=== PATIENT | female | born 1950 | race Caucasian/White ===

== ENCOUNTER → 2019-01-06 | Outpatient (CLI) | payer OTHER ==
[2019-01-06 19:28] LABS: BASOPHILS ABSOLUTE AUTO 0.02 K/mm3 (0.00-0.23); BASOPHILS PERCENT AUTO 0 % (0-2); EOSINOPHILS ABSOLUTE AUTO 0.14 K/mm3 (0.00-0.68); EOSINOPHILS PERCENT AUTO 2 % (0-6); Hematocrit 39.2 % (33.0-51.0); Hemoglobin 12.7 g/dL (11.5-16.0); IMMATURE GRAN ABSOLUTE AUTO 0.01 K/mm3 (0.00-0.10); IMMATURE GRAN PERCENT AUTO 0 % (0-1); LYMPHOCYTES PERCENT AUTO 28 % (21-46); MONOCYTES ABSOLUTE AUTO 0.48 K/mm3 (0.16-1.47); MONOCYTES PERCENT AUTO 8 % (4-13); Mean Corpuscular HGB 28.5 pg (26.0-34.0); Mean Corpuscular HGB Conc 32.4 g/dL (31.5-36.5); Mean Corpuscular Volume 88 fL (80-100); NEUTROPHILS ABSOLUTE AUTO 3.53 K/mm3 (1.96-9.15); NEUTROPHILS PERCENT AUTO 61 % (41-73); Platelet Count 342 K/mm3 (150-400); RDW Coefficient Variation 13.1 % (11.7-14.2); RDW Standard Deviation 42.5 fL (35.1-46.3); Red Blood Cell Count 4.45 M/mm3 (3.80-5.20); White Blood Cell Count 5.78 K/mm3 (4.00-11.30)
[2019-01-06 20:03] LABS: Albumin, Blood 3.8 g/dL (3.4-5.0); Alk Phos 108 U/L (50-136); Anion Gap 7 mmol/L (6-16); Aspartate Aminotrans (AST/SGOT 18 U/L (12-37); Bilirubin, Total 0.2 mg/dL (0.1-1.0); Blood Urea Nitrogen 13 mg/dL (8-24); Bun/Creatinine Ratio 20.9 (12.0-20.0); CHOL/HDL RATIO 3.5; CO2, Blood 26 mmol/L (21-32); Calcium, Blood 9.4 mg/dL (8.5-10.1); Chloride, Blood 108 mmol/L (98-108); Cholesterol 209 mg/dL (50-200); Creatinine, Blood 0.62 mg/dL (0.40-1.00); Globulin, Blood 3.9 g/dL (2.2-4.0); Glomerular Filtration Rate >60 (60-); Glucose, Blood 111 mg/dL (70-99); HDL Cholesterol 59 mg/dL (>39); LDL/HDL RATIO 2.2; Low Density Lipoprotein Chol 133 mg/dL (0-110); Potassium, Blood 3.5 mmol/L (3.5-5.5); Sodium, Blood 141 mmol/L (136-145); Total Protein, Blood 7.7 g/dL (6.4-8.2); Triglycerides 87 mg/dL (30-160); Very Low Density Lipoprot Chol 17 mg/dL (6-32)
[2019-01-06 20:09] LABS: Alanine Aminotransfer (ALT/SGP 23 U/L (12-78)
== END | disposition home or self-care (01) ==
LOC: LAB SHORT 18:21 → LAB 18:21
DX: I10 Essential (primary) hypertension (principal)
CPT/HCPCS: 80053; 80061; 85025

== ENCOUNTER 2020-04-21 20:39 | Inpatient (IN) | payer OTHER, MEDICARE ==
[~2020-04-21] VITALS: Ht 162.6 cm; Wt 61.1 kg
[2020-04-21 21:13] LABS: Hematocrit 44.1 % (33.0-51.0); Hemoglobin 14.8 g/dL (11.5-16.0); Mean Corpuscular HGB 28.8 pg (26.0-34.0); Mean Corpuscular HGB Conc 33.6 g/dL (31.5-36.5); Mean Corpuscular Volume 86 fL (80-100); Mean Platelet Volume 9.4 fL (9.1-12.4); Platelet Count 251 K/mm3 (150-400); RDW Coefficient Variation 12.8 % (11.7-14.2); RDW Standard Deviation 40.6 fL (35.1-46.3); Red Blood Cell Count 5.13 M/mm3 (3.80-5.20); White Blood Cell Count 2.95 K/mm3 (4.00-11.30)
[2020-04-21 21:36] LABS: Albumin, Blood 3.5 g/dL (3.4-5.0); Albumin/Globulin Ratio 0.7 (0.8-1.8); Bilirubin, Total 0.7 mg/dL (0.1-1.0); Bun/Creatinine Ratio 22.2 (12.0-20.0); Calcium, Blood 9.8 mg/dL (8.5-10.1); Creatinine, Blood 1.17 mg/dL (0.40-1.00); Globulin, Blood 5.1 g/dL (2.2-4.0); Potassium, Blood 3.8 mmol/L (3.5-5.5); Total Protein, Blood 8.6 g/dL (6.4-8.2)
[2020-04-21 21:42] LABS: BAND PERCENT MAN 21 % (0-8); BASOPHILS PERCENT MAN 0 % (0-2); EOSINOPHILS PERCENT MAN 0 % (0-6); LYMPHOCYTES ABSOLUTE MAN 0.17 K/mm3 (0.84-5.20); LYMPHOCYTES PERCENT MAN 6 % (21-46); METAMYELOCYTE ABSOLUTE MAN 0.02 K/mm3 (0.00-0.00); METAMYELOCYTE PERCENT MAN 1 % (0-0); MONOCYTES ABSOLUTE MAN 0.05 K/mm3 (0.16-1.47); MONOCYTES PERCENT MAN 2 % (4-13); NEUTROPHILS ABSOLUTE MAN 2.68 K/mm3 (1.96-9.15); SEG NEUTROPHILS PERCENT MAN 70 % (41-73); TOTAL CELLS COUNTED 100
[2020-04-21] MEDS ORDERED: ZESTRIL40 M1 PO (23:25)
[2020-04-21] MEDS ORDERED: AMLODIPINE BESY10 MG PO (23:25)
[2020-04-21] MEDS ORDERED: GEMFIBROZIL600 MG PO (23:25)
[2020-04-22 00:54] LABS: Magnesium, Blood 2.2 mg/dL (1.6-2.4)
[2020-04-22 01:30] LABS: Thyroid Stimulating Hormone 2.97 uIU/mL (0.360-4.800); Troponin I 0.096 ng/mL (0.000-0.040)
[2020-04-22 03:29] LABS: Source, Urine Clean Catch
[2020-04-22 03:31] LABS: Appearance, Urine Hazy (Clear); Bilirubin, Urine Neg (Neg); Blood, Urine 5+ (Neg); Color, Urine Yellow (P-Yellow); Glucose Qualitative, Urine Neg (Neg); Ketones, Urine 1+ (Neg); Leukocyte Esterase, Urine 2+ (Neg); Nitrite, Urine Neg (Neg); Protein, Urine 3+ (Neg); Specific Gravity, Urine 1.015 (1.003-1.022); Urobilinogen, Urine NORM (Normal)
[2020-04-22 03:37] LABS: Bacteria Many /hpf; Red Blood Cells, Urine 0-2 /hpf (0-2); Squamous Epithelial Cells Rare /hpf (Few); White Blood Cells, Urine TNTC /hpf (0-5)
--- NOTE | 2020-04-22 13:30 | NUR ---
ASSUMED CARE: PT ARRIVED TO ICU FROM ED VIA GURNEY. LEVOPHED AT 3MCG AND TURNED OFF DUE TO MAP 75. LR RUNNING AT 125/HR. PT SAID THAT IV HURTS BUT CLARIFIED THAT IT WAS NOT PAINFUL TO RUN BUT FELT HEAVY. LEVOPHED DISCONNECTED AT THIS TIME. ALERT AND ORIENTED, COOPERATIVE. ANSWERING QUESTIONS APPROPRIATELY. NSR ON TELE. SCDS IN PLACE. NO ACUTE NEEDS OR CONCERNS AT THIS TIME.
--- NOTE | 2020-04-22 15:07 | NUR ---
BATON TEACHER AT BEDSIDE AT THIS TIME.
--- NOTE | 2020-04-22 15:19 | NUR ---
Echocardiogram completed.
--- NOTE | 2020-04-22 18:47 | NUR ---
SHIFT SUMMARY: PT HAS BEEN OFF OF LEVOPHED SINCE ARRIVAL TO ICU. VSS. BLOOD PRESSURES SOFT BUT MAP GREATER THAN 67. PLACED ON 2L O2 TO KEEP SATS GREATER THAN 92%. WAS AT BEDSIDE AND GIVEN AN UPDATE. PT DENIES NEEDS OR CONCNERNS. SINUS ELVIRA WITH HR AT 57 AT THIS TIME.
--- NOTE | 2020-04-22 19:40 | NUR ---
PT UP TO BSC WITH SBA - REPORTS ONLY DISCOMFORT IS SHE FEELS "TIRED AND WEAK." PT DENIES ANY HEADACHE, CHEST PAIN, SOB, NAUSEA, NUMBNESS/TINGLING OF PAIN. PAS OFF FOR BSC USE, THEN PLACED BACK ON WHEN PT BACK TO BED. LR INFUSING TO R AC IV SITE WITHOUT COMPLICATIONS. PT DENIED ANY BURNING WITH URINATION. CALL LIGHT IN REACH.
--- NOTE | 2020-04-23 00:10 | NUR ---
PT REQUESTING TO HAVE HER OXYGEN TURNED DOWN - SHE REPORTS SHE FEELS LIKE SHE IS GETTING TOO MUCH AIR - O2 TURNED DOWN FROM 3L TO 1L - SATS MAINTAINING IN LOW 90'S. CALL LIGHT WITHIN REACH, BED IN LOW POSITION, FLUIDS AT BEDSIDE.
--- NOTE | 2020-04-23 02:25 | NUR ---
PT REPORTS HAVING RIGHT SHOULDER PAIN. SHE ALSO REPORTS SHE HAS ARTHRITIS, "ALL OVER" AND USUALLY TAKES ALEVE AT HOME. DENIES WANTING TYLENOL. PT REPORTED THAT AT APPX 0200 SHE AWOKE TO RIGHT SHOULDER PAIN 7/10, BUT SHE STARTED MOVING AROUND IN BED, AND THE PAIN IMPROVED. PT HAD A 4 BEAT RUN OF SVT AT 0203. PT DENIES ANY CHEST PAIN, SOB, NAUSEA, OR NUMBNESS AND TINGLING. PROVIDED PT WITH KPAD FOR COMFORT TO RIGHT SHOULDER. SHE REPORTS HER PAIN IN HER RIGHT SHOULDER CURRENTLY IS 3/10. ICE WATER PROVIDED PER REQUEST. BED IN LOW POSITION. SATS WNL ON 1L O2 NC. CALL LIGHT WITHIN REACH.
[2020-04-23 03:53] LABS: BASOPHILS ABSOLUTE AUTO 0.02 K/mm3 (0.00-0.23); BASOPHILS PERCENT AUTO 0 % (0-2); EOSINOPHILS ABSOLUTE AUTO 0.03 K/mm3 (0.00-0.68); EOSINOPHILS PERCENT AUTO 0 % (0-6); Hematocrit 28.9 % (33.0-51.0); Hemoglobin 9.9 g/dL (11.5-16.0); IMMATURE GRAN ABSOLUTE AUTO 0.06 K/mm3 (0.00-0.10); IMMATURE GRAN PERCENT AUTO 1 % (0-1); LYMPHOCYTES ABSOLUTE AUTO 1.06 K/mm3 (0.84-5.20); LYMPHOCYTES PERCENT AUTO 10 % (21-46); MONOCYTES ABSOLUTE AUTO 0.76 K/mm3 (0.16-1.47); MONOCYTES PERCENT AUTO 7 % (4-13); Mean Corpuscular HGB 29.1 pg (26.0-34.0); Mean Corpuscular HGB Conc 34.3 g/dL (31.5-36.5); Mean Corpuscular Volume 85 fL (80-100); Mean Platelet Volume 10.5 fL (9.1-12.4); NEUTROPHILS ABSOLUTE AUTO 9.23 K/mm3 (1.96-9.15); NEUTROPHILS PERCENT AUTO 83 % (41-73); Platelet Count 233 K/mm3 (150-400); RDW Coefficient Variation 13.2 % (11.7-14.2); RDW Standard Deviation 40.9 fL (35.1-46.3); White Blood Cell Count 11.16 K/mm3 (4.00-11.30)
[2020-04-23 04:13] LABS: Albumin, Blood 2.2 g/dL (3.4-5.0); Anion Gap 8 mmol/L (6-16); Blood Urea Nitrogen 18 mg/dL (8-24); Bun/Creatinine Ratio 24.7 (12.0-20.0); CO2, Blood 26 mmol/L (21-32); Calcium, Blood 8.3 mg/dL (8.5-10.1); Chloride, Blood 108 mmol/L (98-108); Creatinine, Blood 0.73 mg/dL (0.40-1.00); Glomerular Filtration Rate >60 (60-); Glucose, Blood 94 mg/dL (70-99); Phosphorus, Blood 1.6 mg/dL (2.5-4.9); Sodium, Blood 142 mmol/L (136-145)
--- NOTE | 2020-04-23 04:20 | NUR ---
SPOKE TO DR. RUSSO - UPDATED ON POTASSIUM, PHOSPHORUS, AND H&H LEVEL THIS AM - ALSO REVIEWED PT ON LR AT 150 HOUR. NEW ORDERS OBTAINED.
--- NOTE | 2020-04-23 05:12 | NUR ---
SHIFT SUMMARY - NO ACUTE CHANGES TONIGHT. PT REPORTS THE KPAD IS HELPING WITH HER RIGHT SHOULDER PAIN. PT SLEPT FOR APPX 5 HOURS. PT SATS WNL WITH 1L OXYGEN VIA NC. PAS TAKEN OFF THIS AM, AFTER LAST BSC USE, PER PT REQUEST. PT DENIES ANY BURNING WITH URINATION, URINE CLEAR YELLOW, LESS ODOR WITH URINE THIS AM. FLUIDS AT BEDSIDE. CALL LIGHT WITHIN REACH. BED IN LOW POSITION.
[2020-04-23 06:45] LABS: Percent Saturation 12.8 % (15.0-50.0)
--- NOTE | 2020-04-23 08:24 | NUR ---
ASSUME CARE: REPORT RECEIVED FROM KI JOY RN. PT IS ALERT AND ORIENTED X4 PLEASANT AND COOPERATIVE, VITALS HRR SR/SB 55-60'S, BP SYSTOLIC 120'S, SATS ABOVE 92% ON RA, AFEBRILE. PT DENIES ANY CHEST PAIN/PRESSURE. RIGHT SHOULDER PAIN RELIEVED BY WARM COMPRESS HAS MILD HEADACHE BUT REFUSED TYLENOL AT THIS TIME. PT SBA TO TOILET FOR TRANSFERS TOELRATED WELL. PT REMAINS ON CLEAR LIQUID DIET, LR RUNNING AT 150MLS/HR AND ZOSYN AT 12.5MLS/HR. NO OTHER ISSUES REPORTED AT THIS TIME, PT IN BED EATING BREAKFAST ABLE TO MAKE NEEDS KNOWN, CALL LIGHTS IN REACH WILL MONITOR
--- NOTE | 2020-04-23 12:48 | NUR ---
STATUS CHANGE TO MEDICAL WITH NO TELE. PT TRANSFERRED TO ROOM 233 VIA WHEELCAHIR ACCOMPANIED BY PCT, ALL BELONGINGS SENT. REPORT GIVEN TO JOSE SUE
--- NOTE | 2020-04-23 18:43 | NUR ---
PT HAS BEEN STABLE SINCE TRANSFER FROM ICU. PT BP STABLE. PT UP INDEP IN ROOM. PT VOIDING WELL WITH NO URINARY SYMPTOMS. CONT IV FLUIDS ORDERED. CONT ABX. PT DENIES PAIN. POOR APPETITE. PLAN FOR POSSIBLE DC HOME TOMORROW.
[2020-04-24 05:59] LABS: BASOPHILS ABSOLUTE AUTO 0.02 K/mm3 (0.00-0.23); BASOPHILS PERCENT AUTO 0 % (0-2); EOSINOPHILS ABSOLUTE AUTO 0.01 K/mm3 (0.00-0.68); EOSINOPHILS PERCENT AUTO 0 % (0-6); Hematocrit 30.8 % (33.0-51.0); Hemoglobin 10.7 g/dL (11.5-16.0); IMMATURE GRAN ABSOLUTE AUTO 0.07 K/mm3 (0.00-0.10); IMMATURE GRAN PERCENT AUTO 1 % (0-1); LYMPHOCYTES ABSOLUTE AUTO 0.56 K/mm3 (0.84-5.20); LYMPHOCYTES PERCENT AUTO 6 % (21-46); MONOCYTES ABSOLUTE AUTO 0.45 K/mm3 (0.16-1.47); MONOCYTES PERCENT AUTO 5 % (4-13); Mean Corpuscular HGB Conc 34.7 g/dL (31.5-36.5); Mean Corpuscular Volume 84 fL (80-100); Mean Platelet Volume 10.2 fL (9.1-12.4); NEUTROPHILS ABSOLUTE AUTO 8.43 K/mm3 (1.96-9.15); NEUTROPHILS PERCENT AUTO 88 % (41-73); Platelet Count 258 K/mm3 (150-400); RDW Coefficient Variation 12.7 % (11.7-14.2); RDW Standard Deviation 38.5 fL (35.1-46.3); Red Blood Cell Count 3.69 M/mm3 (3.80-5.20); White Blood Cell Count 9.54 K/mm3 (4.00-11.30)
[2020-04-24 06:24] LABS: Albumin, Blood 2.3 g/dL (3.4-5.0); Anion Gap 5 mmol/L (6-16); Blood Urea Nitrogen 8 mg/dL (8-24); Bun/Creatinine Ratio 12.2 (12.0-20.0); CO2, Blood 29 mmol/L (21-32); Calcium, Blood 8.2 mg/dL (8.5-10.1); Chloride, Blood 107 mmol/L (98-108); Creatinine, Blood 0.66 mg/dL (0.40-1.00); Glomerular Filtration Rate >60 (60-); Glucose, Blood 97 mg/dL (70-99); Magnesium, Blood 1.9 mg/dL (1.6-2.4); Phosphorus, Blood 3.4 mg/dL (2.5-4.9); Sodium, Blood 141 mmol/L (136-145)
--- NOTE | 2020-04-24 07:26 | NUR ---
RECVD REPORT FROM PREVIOUS SHIFT RN BRANDAN, PT SLEEPING IN BED, BED IN LOWEST POSITION, BED RAILS UP X 2, CALL LIGHT WITHIN REACH
--- NOTE | 2020-04-24 07:33 | NUR ---
SHIFT SUMMARY PT AOX4. VSS. PT REPORTS 1 EPISODE OF CHILLS AND NAUSEA LAST NIGHT. TEMP WAS 102.7 (ORAL). TYLENOL WAS GIVEN AND ZOFRAN IV ADMINISTERED, IV INFUSING, TAKEN OFF SOME OF HER BLANKET. PT'S SX IMPROVED AFTER HALF AN HOUR. ABX ADMINSTERED VIA IV. PT SLEPT T/O SHIFT. SHE REPORTS FEELING A LOT BETTER THIS MORNING. VOIDING ADEQUATELY. CALL LIGHT WITHIN REACH. REPORT GIVEN TO MORNING NURSE.
--- NOTE | 2020-04-24 09:40 | NUR ---
dr corbin rounding on pt
--- NOTE | 2020-04-24 09:58 | NUR ---
PT UP IN ROOM, TALKING ON TELEPHONE
[2020-04-24] MEDS ORDERED: Florastor250 MG PO (15:19)
[2020-04-24] MEDS ORDERED: LEVO750 PO (15:19)
--- NOTE | 2020-04-24 15:55 | NUR ---
provided pt with discharge instructions, printed materials, removed peripheral IV wnl. pt states understanding of instructions and denies questions. called prescriptions to [facility]. pt transported to awaiting vehicle via wheelchair with belongings taken to awaiting care by spouse.
== END 2020-04-24 16:09 | disposition home or self-care (01) | DRG 871 ==
LOC: ER 20:39 → ICUE 04-22 04:04 → ERHOLD 04-22 04:04 → ICUE 04-22 12:55 → SURS 04-23 12:45
PROVIDERS: Internal Medicine; Physician Assistant; ADMIT Internal Medicine
PROC: 3E043XZ Introduction of Vasopressor into Central Vein, Percutaneous Approach (ICD-10-PCS; principal; 2020-04-22)
DX: A41.89 Other specified sepsis (principal); R65.21 Severe sepsis with septic shock; N39.0 Urinary tract infection, site not specified; I24.8 Other forms of acute ischemic heart disease; E87.2 Acidosis; I10 Essential (primary) hypertension; E78.5 Hyperlipidemia, unspecified; E87.6 Hypokalemia; Z20.822 Contact with and (suspected) exposure to COVID-19; E11.65 Type 2 diabetes mellitus with hyperglycemia; E83.39 Other disorders of phosphorus metabolism; D64.9 Anemia, unspecified
CPT/HCPCS: 36415; 51701; 71045; 76770; 80053; 80069; 81001; 82607; 82728; 82746; 82947; 83036; 83540; 83550; 83605; 83690; 83735; 84443; 84484; 85025; 85730; 87040; 87077; 87086; 87186; 93005; 93010; 93306; 96365; 96366; 96372; 96375; 99285-25; A9270; J0696; J1650; J2405; J2543; J7030; J7060; J7120

== ENCOUNTER → 2021-07-30 | Outpatient (CLI) | payer OTHER ==
[~2021-07-30] MED LIST: AMLODIPINE BESY10 MG PO; Florastor250 MG PO; GEMFIBROZIL600 MG PO; LEVO750 PO; ZESTRIL40 M1 PO
== END | disposition home or self-care (01) ==
LOC: LAB SHORT 16:49 → LAB 16:49
DX: N39.0 Urinary tract infection, site not specified (principal)
CPT/HCPCS: 87077; 87086; 87186